=== PATIENT | male | born 1995 | race African-American/Black ===

== ENCOUNTER 2017-09-28 10:07 | Emergency (ER) | payer SELFPAY ==
[2017-09-28] MEDS ORDERED: Ondansetron 4 MG/2 ML SDV IVPUSH ONE (10:28)
[2017-09-28] MEDS ORDERED: Lactated Ringers 1,000 ML IV ONE (10:28)
[2017-09-28] MEDS ORDERED: Sodium Chloride 0.9% 10 ML Syringe FLUSH PRN (10:28)
[2017-09-28] MEDS ORDERED: HYDROmorphone 1 MG/ML Syringe IVPUSH ONE (10:28)
[2017-09-28 11:15] LABS: CHLORIDE,CL 103 mmol/L (98-107); SODIUM,NA 141 mmol/L (136-145)
[2017-09-28] MEDS ORDERED: LORazepam 2 MG/ML SDV IVPUSH ONE (11:26)
--- NOTE | 2017-09-28 11:58 | EDM.PDOC ---
ED HPI GENERAL MEDICAL PROBLEM - General Chief Complaint: Abdominal Pain Stated Complaint: ER Time Seen by Provider: 09/28/17 10:28 Source of Information: Reports: Patient, Significant Other History Limitations: Reports: No Limitations - History of Present Illness INITIAL COMMENTS - FREE TEXT/NARRATIVE: Patient comes in this morning with severe epigastric pain. He has nausea as well. Denies chest pain, SOB, diarrhea, vomiting. History of panic attacks. He denies any blood in urine or stool and is having regular voiding patterns. No headache, change in vision, cough, or sputum production. His significant other is in the room and states he has also been sweating profusely due to the pain. He denies any drug use, does smoke and drink occasionally, though he does not give an amount. Onset: Today, Sudden Onset Date: 09/28/17 Onset Time: 09:00 Location: Reports: Abdomen ED ROS GENERAL - Review of Systems Review Of Systems: See Below Constitutional: Reports: No Symptoms HEENT: Reports: No Symptoms Respiratory: Reports: No Symptoms Cardiovascular: Reports: No Symptoms Endocrine: Reports: No Symptoms GI/Abdominal: Reports: Abdominal Pain, Nausea : Reports: No Symptoms Musculoskeletal: Reports: No Symptoms Skin: Reports: No Symptoms Neurological: Reports: No Symptoms Psychiatric: Reports: Anxiety Hematologic/Lymphatic: Reports: No Symptoms Immunologic: Reports: No Symptoms ED EXAM, GENERAL - Physical Exam Exam: See Below Exam Limited By: No Limitations General Appearance: Alert, WD/WN, Moderate Distress Eye Exam: Bilateral Eye: EOMI, PERRL Ears: Normal TMs Nose: Normal Inspection, Normal Mucosa, No Blood Throat/Mouth: Normal Inspection, Normal Lips, Normal Teeth, Normal Gums, Normal Oropharynx, Normal Voice, No Airway Compromise Head: Atraumatic, Normocephalic Neck: Normal Inspection, Supple, Non-Tender, Full Range of Motion Respiratory/Chest: No Respiratory Distress, Lungs Clear, Normal Breath Sounds, No Accessory Muscle Use, Chest Non-Tender Cardiovascular: Normal Peripheral Pulses, Regular Rate, Rhythm, No Edema, No Gallop, No JVD, No Murmur, No Rub GI/Abdominal: Normal Bowel Sounds, Soft, Non-Tender, No Organomegaly, No Distention, No Abnormal Bruit, No Mass Back Exam: Normal Inspection, Full Range of Motion, NT Extremities: Normal Inspection, Normal Range of Motion, Non-Tender, Normal Capillary Refill, No Pedal Edema Neurological: Alert, Oriented, CN II-XII Intact, Normal Cognition, Normal Gait, Normal Reflexes, No Motor/Sensory Deficits Psychiatric: Anxious Skin Exam: Warm, Dry, Intact, Normal Color, No Rash Lymphatic: No Adenopathy Course - Orders/Labs/Meds Orders: Active Orders 24 hr Category Date Time Status Abdomen Pelvis w Cont [CT] Stat Exams 09/28/17 10:29 Taken CARBOXY-THC BY GC/MS Urgent Lab 09/28/17 11:15 Received Sodium Chloride 0.9% [Saline Flush] Med 09/28/17 10:28 Active 10 ml FLUSH ASDIRECTED PRN Saline Lock Insert [OM.PC] Routine Oth 09/28/17 10:28 Ordered Medication Orders Sodium Chloride (Saline Flush) 10 ml FLUSH ASDIRECTED PRN PRN Reason: Keep Vein Open Labs: Laboratory Tests 09/28/17 09/28/17 09/28/17 Range/Units 10:40 10:40 11:07 WBC 6.3 (4.0-10.0) x10^3/uL RBC 5.55 (4.5-6.0) x10^6/uL Hgb 16.3 (14.0-18.0) g/dL Hct 48.0 (40.0-52.0) % MCV 86.5 (78.0-93.0) fL MCH 29.4 (26.0-32.0) pg MCHC 34.0 (32.0-36.0) g/dL RDW Coeff of Ambreen 14.3 (10.0-15.0) % Plt Count 263 (130-400) x10^3/uL Neut % (Auto) 42.7 L (50.0-80.0) % Lymph % (Auto) 35.3 (25.0-50.0) % [place] % (Auto) 16.6 H (2.0-11.0) % Eos % (Auto) 4.9 H (0.0-4.0) % Baso % (Auto) 0.5 (0.2-1.2) % Sodium 141 (136-145) mmol/L Potassium 3.9 (3.5-5.1) mmol/L Chloride 103 (98-107) mmol/L Carbon Dioxide 23 (21-32) mmol/L BUN 26 H (7-18) mg/dL Creatinine 1.1 (0.70-1.30) mg/dL Est Cr Clr Drug Dosing TNP Estimated GFR (MDRD) > 60 Glucose 151 H (74-106) mg/dL Lactic Acid 1.0 (0.4-2.0) mmol/L Calcium 9.1 (8.5-10.1) mg/dL Corrected Calcium 9.10 (8.5-10.1) mg/dL Total Bilirubin 0.4 (0.2-1.0) mg/dL AST 27 (15-37) U/L ALT 64 H (16-63) U/L Alkaline Phosphatase 129 H (46-116) U/L Troponin I < 0.017 (<=0.056) ng/mL C-Reactive Protein < 0.2 (<=0.9) mg/dL Total Protein 8.1 (6.4-8.2) g/dL Albumin 4.0 (3.4-5.0) g/dL Globulin 4.1 Albumin/Globulin Ratio 0.98 Amylase 78 (25-115) U/L Lipase 183 (73-393) U/L Urine Color (YELLOW) Urine Appearance (CLEAR) Urine pH (5.0-8.0) Ur Specific [place] Urine Protein (NEGATIVE) mg/dL Urine Glucose (UA) (NEGATIVE) mg/dL Urine Ketones (NEGATIVE) mg/dL Urine Occult Blood (NEGATIVE) Urine Nitrite (NEGATIVE) Urine Bilirubin (NEGATIVE) Urine Urobilinogen (0.2) EU/dL Ur Leukocyte Esterase (NEGATIVE) Urine RBC (NOT SEEN) /HPF Urine WBC (NOT SEEN) /HPF Ur Squamous Epith Cells (NEGATIVE) /HPF Urine Bacteria (NEGATIVE) /HPF Urine Mucus (NEGATIVE) /LPF Urine Opiates Screen (NEGATIVE) Ur Buprenorphine Scrn (NEGATIVE) Ur Oxycodone Screen (NEGATIVE) Urine Methadone Screen (NEGATIVE) Ur Barbituates Screen (NEGATIVE) Ur Tricyclics Screen (NEGATIVE) Ur Amphetamines Screen (NEGATIVE) U Methamphetamines Scrn (NEGATIVE) Urine MDMA Screen (NEGATIVE) U Benzodiazepines Scrn (NEGATIVE) Urine Cocaine Screen (NEGATIVE) U Marijuana (THC) Screen (NEGATIVE) 09/28/17 09/28/17 Range/Units 11:15 11:15 WBC (4.0-10.0) x10^3/uL RBC (4.5-6.0) x10^6/uL Hgb (14.0-18.0) g/dL Hct (40.0-52.0) % MCV (78.0-93.0) fL MCH (26.0-32.0) pg MCHC (32.0-36.0) g/dL RDW Coeff of Ambreen (10.0-15.0) % Plt Count (130-400) x10^3/uL Neut % (Auto) (50.0-80.0) % Lymph % (Auto) (25.0-50.0) % [place] % (Auto) (2.0-11.0) % Eos % (Auto) (0.0-4.0) % Baso % (Auto) (0.2-1.2) % Sodium (136-145) mmol/L Potassium (3.5-5.1) mmol/L Chloride (98-107) mmol/L Carbon Dioxide (21-32) mmol/L BUN (7-18) mg/dL Creatinine (0.70-1.30) mg/dL Est Cr Clr Drug Dosing Estimated GFR (MDRD) Glucose (74-106) mg/dL Lactic Acid (0.4-2.0) mmol/L Calcium (8.5-10.1) mg/dL Corrected Calcium (8.5-10.1) mg/dL Total Bilirubin (0.2-1.0) mg/dL AST (15-37) U/L ALT (16-63) U/L Alkaline Phosphatase (46-116) U/L Troponin I (<=0.056) ng/mL C-Reactive Protein (<=0.9) mg/dL Total Protein (6.4-8.2) g/dL Albumin (3.4-5.0) g/dL Globulin Albumin/Globulin Ratio Amylase (25-115) U/L Lipase (73-393) U/L Urine Color Yellow (YELLOW) Urine Appearance Slightly cloudy H (CLEAR) Urine pH 7.0 (5.0-8.0) Ur Specific [place] 1.020 Urine Protein Trace H (NEGATIVE) mg/dL Urine Glucose (UA) Negative (NEGATIVE) mg/dL Urine Ketones Negative (NEGATIVE) mg/dL Urine Occult Blood Negative (NEGATIVE) Urine Nitrite Negative (NEGATIVE) Urine Bilirubin Negative (NEGATIVE) Urine Urobilinogen 0.2 (0.2) EU/dL Ur Leukocyte Esterase Negative (NEGATIVE) Urine RBC 0-5 (NOT SEEN) /HPF Urine WBC 0-5 (NOT SEEN) /HPF Ur Squamous Epith Cells Not seen (NEGATIVE) /HPF Urine Bacteria Rare (NEGATIVE) /HPF Urine Mucus Not seen (NEGATIVE) /LPF Urine Opiates Screen Negative (NEGATIVE) Ur Buprenorphine Scrn Negative (NEGATIVE) Ur Oxycodone Screen Negative (NEGATIVE) Urine Methadone Screen Negative (NEGATIVE) Ur Barbituates Screen Negative (NEGATIVE) Ur Tricyclics Screen Negative (NEGATIVE) Ur Amphetamines Screen Negative (NEGATIVE) U Methamphetamines Scrn Negative (NEGATIVE) Urine MDMA Screen Negative (NEGATIVE) U Benzodiazepines Scrn Negative (NEGATIVE) Urine Cocaine Screen Negative (NEGATIVE) U Marijuana (THC) Screen Positive H (NEGATIVE) Meds: Medications Generic Name Dose Route Start Last Admin Trade Name Freq PRN Reason Stop Dose Admin Sodium Chloride 10 ml 09/28/17 10:28 Saline Flush FLUSH ASDIRECTED PRN Keep Vein Open Discontinued Medications Generic Name Dose Route Start Last Admin Trade Name Freq PRN Reason Stop Dose Admin Hydrocodone Bitart/Acetaminophen 1 packet 09/28/17 12:04 09/28/17 12:17 Take Home: Acetaminophen/Hydrocodone 325-10mg PO 09/28/17 12:05 1 packet ONETIME ONE Administration Hydromorphone HCl 1 mg 09/28/17 10:28 09/28/17 10:36 Dilaudid IVPUSH 09/28/17 10:29 1 mg ONETIME ONE Administration Lactated Ringer's 1,000 mls @ 999 mls/hr 09/28/17 10:28 09/28/17 10:38 Ringers, Lactated IV 09/28/17 11:28 999 mls/hr .BOLUS ONE Administration Lorazepam 1 mg 09/28/17 11:26 09/28/17 11:42 Ativan IVPUSH 09/28/17 11:27 1 mg ONETIME ONE Administration Ondansetron HCl 4 mg 09/28/17 10:28 09/28/17 10:38 Zofran IVPUSH 09/28/17 10:29 4 mg ONETIME ONE Administration Ondansetron HCl 1 packet 09/28/17 12:04 09/28/17 12:17 Take Home: Ondansetron Odt 4 Mg, 2 Tab Pack PO 09/28/17 12:05 1 packet ONETIME ONE Administration Departure - Departure Time of Disposition: 12:15 Disposition: Home, Self-Care 01 Condition: Good Clinical Impression: Cholecystitis without cholelithiasis, Biliary colic symptom - Discharge Information Instructions: Cholecystitis, [id number] Referrals: PCP,None [Primary Care Provider] - Forms: ED Department Discharge Additional Instructions: Your blood and urine did not show acute causes for your abdominal pain. The CT showed that you have cholecystitis without cholelithiasis - inflammation of your gall bladder without stones blocking your biliary ducts. Your common hepatic duct is dilated at 10 mm with no stones observed. Take the zofran and hydrocodone medications as prescribed. Take the zofran 1 tablet every 6 hours for nausea and let dissolve. Take 1 hydrocodone every 4 hours for pain. If your pain returns or worsens, please be seen again in the emergency room or clinic. You could begin to develop stones in your gall bladder. At some point you may need to have an ERCP or MRCP to investigate your gall bladder's inflammation. Eat healthier, lower fat, lower cholesterol, and lower grease type foods. If you have any questions or concerns feel free to call. - Problem List & Annotations (1) Biliary colic symptom SNOMED Code(s): 74882583 Code(s): K80.50 - CALCULUS OF BILE DUCT W/O CHOLANGITIS OR CHOLECYST W/O OBST Status: Acute Priority: Low Current Visit: Yes (2) Cholecystitis without cholelithiasis SNOMED Code(s): 74008399 Code(s): K81.9 - CHOLECYSTITIS, UNSPECIFIED Status: Acute Priority: Low Current Visit: Yes - Problem List Review Problem List Initiated/Reviewed/Updated: Yes - My Orders Last 24 Hours: My Active Orders 09/28/17 10:28 Sodium Chloride 0.9% [Saline Flush] 10 ml FLUSH ASDIRECTED PRN Saline Lock Insert [OM.PC] Routine 09/28/17 10:29 Abdomen Pelvis w Cont [CT] Stat 09/28/17 11:15 CARBOXY-THC BY GC/MS Urgent - Assessment/Plan Last 24 Hours: My Active Orders 09/28/17 10:28 Sodium Chloride 0.9% [Saline Flush] 10 ml FLUSH ASDIRECTED PRN Saline Lock Insert [OM.PC] Routine 09/28/17 10:29 Abdomen Pelvis w Cont [CT] Stat 09/28/17 11:15 CARBOXY-THC BY GC/MS Urgent Assessment:: Cholelithiasis without cholecystitis Com[place] hepatic duct elevation Nausea and vomiting Plan: Your blood and urine did not show acute causes for your abdominal pain. The CT showed that you have cholecystitis without cholelithiasis - inflammation of your gall bladder without stones blocking your biliary ducts. Your common hepatic duct is dilated at 10 mm with no stones observed. Take the zofran and hydrocodone medications as prescribed. If your pain returns or worsens, please be seen again in the emergency room or clinic. You could begin to develop stones in your gall bladder. At some point you may need to have an ERCP or MRCP to investigate your gall bladder's inflammation. Eat healthier, lower fat, lower cholesterol, and lower grease type foods. If you have any questions or concerns feel free to call.
[2017-09-28] MEDS ORDERED: Take Home: Acetaminophen/HYDROcodone 325-10 MG, 5 Tab Pack PO ONE (12:04)
[2017-09-28] MEDS ORDERED: Take Home: Ondansetron 4 MG Tab.DIS, 2 Tab Pack PO ONE (12:04)
== END 2017-09-28 12:35 | disposition home or self-care (01) ==
LOC: VM.ED 10:07
DX: K81.9 Cholecystitis, unspecified (principal); F17.200 Nicotine dependence, unspecified, uncomplicated
CPT/HCPCS: 36415; 74177; 80053; 80305; 80349; 81001; 82150; 83605; 83690; 84484; 85025; 86140; 96361; 96374; 96375; 99284; A9270; J1170; J2060; J2405; J7120

== ENCOUNTER 2017-11-21 14:56 | Emergency (ER) | payer SELFPAY ==
[2017-11-21] MEDS ORDERED: Diphtheria,Pertussis(Acell),Tetanus Vaccine 0.5 ML Syringe IM ONE (16:23)
--- NOTE | 2017-11-21 16:57 | EDM.PDOC ---
ED HPI GENERAL MEDICAL PROBLEM - General Chief Complaint: Laceration Stated Complaint: ER Time Seen by Provider: 11/21/17 15:57 Source of Information: Reports: Patient History Limitations: Reports: No Limitations - History of Present Illness INITIAL COMMENTS - FREE TEXT/NARRATIVE: Pt. presents to ER with a laceration to his L index fingertip. Pt. states that this happened over 12 hours ago (unknown what time). He is not sure what type of knife caused the injury. He denies any previous injury to the area or elsewhere. He states that he is not sure when is tetanus was last updated. Onset: Today Onset Date: 11/20/17 Location: Reports: Upper Extremity, Left Quality: Reports: Throbbing Severity: Mild Left 2-Index finger Pain Score (Numeric/FACES): 4 - Related Data Allergies Allergy/AdvReac Type Severity Reaction Status Date / Time No Known Allergies Allergy Verified 09/28/17 15:44 Home Meds: Home Meds . [No Known Home Meds] 09/28/17 [History] Past Medical History - Past Health History Medical/Surgical History: Denies Medical/Surgical History Social & Family History - Tobacco Use Smoking Status *Q: Current Every Day Smoker Years of Tobacco use: 1 Packs/Tins Daily: 1 - Recreational Drug Use Recreational Drug Use: No ED ROS GENERAL - Review of Systems Review Of Systems: See Below Constitutional: Reports: No Symptoms Musculoskeletal: Reports: Other (pain to L index finger) Skin: Reports: No Symptoms Neurological: Reports: No Symptoms ED EXAM, SKIN/RASH Exam: See Below Exam Limited By: No Limitations General Appearance: Alert, WD/WN, No Apparent Distress Extremities: Normal Range of Motion, Normal Capillary Refill, Other (1x1 cm laceration/partial avulsion to L index finger. It is very shallow, and the partially avulsed area is black/brown and appears not to be perfused.) Skin: Warm, Dry, Intact, Normal Color, No Rash Location, Skin: Upper Extremity, Left ED SKIN PROCEDURES - Additional/Other Procedure(s) Other (Free Text) Procedure(s): Pt. finger was soaked in normal saline and betadine. The tissue flap was barely adherent to the finger, so it was subsequently excised from the finger with scissors using sterile technique. No anesthetic was used, as the area to excise was very small. The finger was further soaked and irrigated. Course - Vital Signs Last Recorded V/S: Last Vital Signs Temp 36.2 C 11/21/17 15:57 Pulse 107 H 11/21/17 15:57 Resp 14 11/21/17 15:57 BP 151/90 H 11/21/17 15:57 Pulse Ox 96 11/21/17 15:57 - Orders/Labs/Meds Orders: Active Orders 24 hr Category Date Time Status Vaccines to be Administered [RC] PER UNIT ROUTINE Care 11/21/17 16:24 Active Meds: Medications Discontinued Medications Generic Name Dose Route Start Last Admin Trade Name Freq PRN Reason Stop Dose Admin Diphtheria/Tetanus/Acell Pertussis 0.5 ml 11/21/17 16:23 11/21/17 16:30 Adacel IM 11/21/17 16:24 0.5 ml .ONCE ONE Administration Departure - Departure Time of Disposition: 16:40 Disposition: Home, Self-Care 01 Condition: Good Clinical Impression: Laceration - Discharge Information Instructions: Laceration Care, Adult Referrals: PCP,None [Primary Care Provider] - Forms: ED Department Discharge Additional Instructions: change bandaid twice daily. return if redness, swelling, or discharge from the area. use bandaid and glove when cooking. - My Orders Last 24 Hours: My Active Orders 11/21/17 16:24 Vaccines to be Administered [RC] PER UNIT ROUTINE - Assessment/Plan Last 24 Hours: My Active Orders 11/21/17 16:24 Vaccines to be Administered [RC] PER UNIT ROUTINE
== END 2017-11-21 16:42 | disposition home or self-care (01) ==
LOC: VM.ED 14:56
DX: S61.211A Laceration without foreign body of left index finger without damage to nail, initial encounter (principal); F17.210 Nicotine dependence, cigarettes, uncomplicated; Z23 Encounter for immunization; W26.0XXA Contact with knife, initial encounter
CPT/HCPCS: 90471; 90715; 99282; 99283-GF